=== PATIENT | male | born 1985 | race Caucasian/White ===

== ENCOUNTER 2017-03-07 15:40 | Emergency (ER) | payer SELFPAY ==
[2017-03-07 16:00] VITALS: BP 150/75
--- NOTE | 2017-03-07 16:55 | UC ---
Hand/Wrist HPI - HPI Summary HPI Summary: left hand pain after punching garage door 2 days ago - History Of Current Complaint Chief Complaint: UCUpperExtremity Stated Complaint: LEFT HAND INJURY Time Seen by Provider: 03/07/17 16:45 Hx Obtained From: Patient ?: No Mechanism Of Injury: punched a garage door Onset/Duration: Sudden Onset, Lasting Days - 2, Still Present Severity Initially: Moderate Severity Currently: Moderate Pain Intensity: 8 Pain Scale Used: 0-10 Numeric Character Of Pain: Aching, Throbbing Aggravating Factor(s): Movement Alleviating: Rest, Ice, Elevation, OTC Meds Associated Signs And Symptoms: Positive: Swelling, Bruising Related History: Dominant Hand Right - Allergies/Home Medications Allergies/Adverse Reactions: Allergies Allergy/AdvReac Type Severity Reaction Status Date / Time [facility] Allergy Unknown Unknown Verified 03/07/17 16:00 Reaction Details PMH/Surg Hx/FS Hx/Imm Hx Previously Healthy: Yes - Surgical History Surgical History: None - Family History Known Family History: Positive: None Family History: no cardiovascular issues reported in family lineage - Social History Occupation: Employed Full-time Lives: With Family Alcohol Use: Rare Substance Use Type: None Smoking Status (MU): Former Smoker Type: Smokeless Tobacco When Did the Patient Quit Smoking/Using Tobacco: 1 year - Immunization History Most Recent Tetanus Shot: unsure Hx Tetanus, Diphtheria Vaccination: Yes Vaccination Up to Date: No Review of Systems Constitutional: Negative Skin: Bruising - left hand Eyes: Negative ENT: Negative Respiratory: Negative Cardiovascular: Negative Gastrointestinal: Negative Genitourinary: Negative Motor: Negative Neurovascular: Negative Musculoskeletal: Arthralgia - left hand especially 5th mc and phalange Neurological: Negative Psychological: Negative All Other Systems Reviewed And Are Negative: Yes Physical Exam Triage Information Reviewed: Yes Appearance: Well-Appearing, Well-Nourished, Pain Distress - mild Vital Signs: Initial Vital Signs Temp 99 F 03/07/17 15:55 Pulse 88 03/07/17 15:55 Resp 14 03/07/17 15:55 BP 150/75 03/07/17 15:55 Pulse Ox 99 03/07/17 15:55 Vital Signs Reviewed: Yes Eye Exam: Normal Eyes: Positive: Conjunctiva Clear ENT Exam: Normal ENT: Positive: Normal ENT inspection, Hearing grossly normal, Pharynx normal, TMs normal. Negative: Nasal congestion, Nasal drainage, Trismus, Muffled/ hoarse voice Dental Exam: Normal Neck exam: Normal Neck: Positive: Supple, Nontender, No Lymphadenopathy Respiratory Exam: Normal Respiratory: Positive: Chest non-tender, Lungs clear, Normal breath sounds, No respiratory distress, No accessory muscle use Cardiovascular Exam: Normal Cardiovascular: Positive: RRR, No Murmur, Pulses Normal, Brisk Capillary Refill Musculoskeletal Exam: Other Musculoskeletal: Positive: Strength Intact, ROM Intact, Edema @ - left hand Neurological Exam: Normal Neurological: Positive: Alert, Muscle Tone Normal Psychological Exam: Normal Skin Exam: Other Skin: Positive: Other - abrasions atop left hand "from the broken glass Diagnostics - Radiology No standard instances Xray Interpretation: No Acute Changes Radiology Interpretation Completed By: Radiologist Re-Evaluation - Re-Evaluation First Eval Change: Improved - Clyde wrap---n/m/c/intact before and after clyde wrap Hand/Wrist Course/Dx - Course Course Of Treatment: pain control, clyde wrap, rice follow with PCP Prn - Differential Dx/Diagnosis Differential Diagnosis/HQI/PQRI: Contusion, Fracture, Sprain, Strain Provider Diagnoses: Left hand contusion, abrasions, hypertension with out dx of hbp, update tetnus Discharge - Discharge Plan Condition: Stable Disposition: HOME Prescriptions: Ibuprofen TAB* [Motrin TAB* 800 MG] 800 mg PO Q8H PRN #30 tab PRN Reason: Pain Patient Education Materials: Diphtheria/Acellular Pertussis/Tetanus Booster Vaccine (By injection), Contusion in Adults (ED), Abrasion (ED), DASH Eating Plan (ED), Hypertension (ED), RICE Therapy (ED) Referrals: Audie Castillo MD [Primary Care Provider] - 2 Weeks
[2017-03-07] MEDS ORDERED: HYDROcodone/ACETAMIN 5-325 MG* 1 TAB PO ONE (17:08)
[2017-03-07] MEDS ORDERED: Tetan/Diph/Pertus SYR(Tdap)* 0.5 ML SYR(BOOSTRIX) use SYR IM ONE (17:08)
--- NOTE | 2017-03-07 17:12 | RAD ---
INDICATION: Punched garage door. Left hand pain COMPARISON: None TECHNIQUE: AP, lateral, and oblique views were obtained. FINDINGS: There is no acute fracture or dislocation. There is soft tissue swelling over the dorsum of the hand. IMPRESSION: NO ACUTE FRACTURE.
== END 2017-03-07 17:37 | disposition home or self-care (01) ==
LOC: UCCORT 15:40
DX: S60.222A Contusion of left hand, initial encounter (principal); S60.512A Abrasion of left hand, initial encounter; I10 Essential (primary) hypertension; W22.09XA Striking against other stationary object, initial encounter; Z87.891 Personal history of nicotine dependence
CPT/HCPCS: 90471; 90715; 99202; G0463

== ENCOUNTER 2017-05-24 10:16 | Emergency (ER) | payer SELFPAY ==
--- NOTE | 2017-05-24 10:42 | UC ---
Lower Extremity/Ankle HPI - HPI Summary HPI Summary: 31 y/o male presents to the urgent care c/o LF ankle pain and swelling s/p falling 3 steps while moving some furniture yesterday. He landed onto some dresser drawers. he also has superficial abrasions on RT and LF shins. Pain at rest is 7/10, and 10/10 when walking. Mild swelling on the LF medial malleollus. Pt denies fever, SOB, chest pain, N/V/D. He has not applied ice or taking anything to alleviate symptoms. - History of Current Complaint Chief Complaint: UCLowerExtremity Stated Complaint: LEFT ANKLE INJURY Time Seen by Provider: 05/24/17 10:28 Hx Obtained From: Patient Onset/Duration: Sudden Onset, Lasting Days Severity Initially: Moderate Severity Currently: Severe Pain Intensity: 7 Pain Scale Used: 0-10 Numeric Aggravating Factor(s): Ambulation Alleviating Factor(s): Rest Able to Bear Weight: Yes - Risk Factors Gout Risk Factors: Negative DVT Risk Factors: Negative Septic Arthritis Risk Factor: Negative - Allergies/Home Medications Allergies/Adverse Reactions: Allergies Allergy/AdvReac Type Severity Reaction Status Date / Time Cefaclor [From [facility]] Allergy Unknown Unknown Verified 05/24/17 10:33 Reaction Details PMH/Surg Hx/FS Hx/Imm Hx Previously Healthy: Yes Cardiovascular History: Hypertension - Surgical History Surgical History: None - Family History Known Family History: Positive: Hypertension Family History: no cardiovascular issues reported in family lineage - Social History Occupation: Employed Full-time Lives: With Family Alcohol Use: Occasionally Substance Use Type: None Smoking Status (MU): Former Smoker Type: Smokeless Tobacco Amount Used/How Often: ONE CAN/WEEK When Did the Patient Quit Smoking/Using Tobacco: 1 year - Immunization History Most Recent Tetanus Shot: unsure Hx Tetanus, Diphtheria Vaccination: Yes Vaccination Up to Date: No Review of Systems Constitutional: Negative Skin: Bruising - LF webb with bruising, RT webb with superficial abrasion Eyes: Negative ENT: Negative Respiratory: Negative Cardiovascular: Negative Gastrointestinal: Negative Genitourinary: Negative Motor: Negative Neurovascular: Negative Musculoskeletal: Other: - LF ankle pain s/p fall Neurological: Negative Psychological: Negative All Other Systems Reviewed And Are Negative: Yes Physical Exam Triage Information Reviewed: Yes Appearance: Well-Appearing, No Pain Distress, Well-Nourished Vital Signs: Initial Vital Signs Temp 98.4 F 05/24/17 10:20 Pulse 87 05/24/17 10:20 Resp 18 05/24/17 10:20 BP 141/83 05/24/17 10:20 Vital Signs Reviewed: Yes Eye Exam: Normal Eyes: Positive: Conjunctiva Clear - PERRLA, EOMI, fundi grossly normal ENT Exam: Normal ENT: Positive: Normal ENT inspection, Hearing grossly normal, Pharynx normal, TMs normal Dental Exam: Normal Neck exam: Normal Neck: Positive: Supple, Nontender, No Lymphadenopathy Respiratory Exam: Normal Respiratory: Positive: Chest non-tender, Lungs clear, Normal breath sounds Cardiovascular Exam: Normal Cardiovascular: Positive: RRR, No Murmur, Pulses Normal, Brisk Capillary Refill Abdominal Exam: Normal Abdomen Description: Positive: Nontender, No Organomegaly, Soft. Negative: CVA Tenderness (R), CVA Tenderness (L) Bowel Sounds: Positive: Present Musculoskeletal: Positive: Strength Intact, Other: - Pt can ambulate w/ limping , medial posterior aspect of the Left ankle with mild swelling, tender to palaption, no erythema or bruisisng observed. limited ROM due to pain.Positive sensation, pulses WNL, capillary refill brisk,. Neurological Exam: Normal Psychological Exam: Normal Skin Exam: Normal Lower Extremity Course/Dx - Course Course Of Treatment: 31 y/o male presents to the urgent care c/o LF ankle pain and swelling s/p falling 3 steps while moving some furniture yesterday. He landed onto some dresser drawers. he also has superficial abrasions on RT and LF shins. Pain at rest is 7/10, and 10/10 when walking. Mild swelling on the LF medial malleollus. Pt denies fever, SOB, chest pain, N/V/D. He has not applied ice or taking anything to alleviate symptoms. LF ankle X-ray ordered: Impression:Negative, no fracture noted. Most likley a Ankle sprain. Pt ankle imobilized w/ ankle gel splin, behzad bandage, given crutches. Rx Naproxen PO to allviate symptoms. F/u with Orthopedic in 1 week if not improvement of symptoms. Pt understood and agreed, left the clinic ambulating w/ help of crutches. - Differential Dx/Diagnosis Differential Diagnosis/HQI/PQRI: Contusion, Dislocation, Fracture (Closed), Sprain, Strain, Tendonitis Provider Diagnoses: 1-Acute left ankle pain Discharge - Discharge Plan Condition: Stable Disposition: HOME Prescriptions: Naproxen TAB* [Naprosyn 250 mg TAB*] 500 mg PO Q8H PRN #30 tab PRN Reason: Pain Patient Education Materials: Ankle Sprain (ED) Referrals: Audie Castillo MD [Primary Care Provider] - 1 Week Paris Will MD [Medical Doctor] - 1 Week Additional Instructions: 1- Please take medication as directed after meals 2-Keep your ankle immobilized and apply ice, rest and elevate it at night time 3-If not improvement of symptoms please f/u with your PCP or Orthopedic in 1 week
[2017-05-24 10:44] VITALS: BP 141/83
--- NOTE | 2017-05-24 10:59 | RAD ---
Indication: Left ankle pain. 3 views of left ankle demonstrates no fracture. Ankle mortise is intact. IMPRESSION: No fracture of left ankle is noted.
== END 2017-05-24 11:47 | disposition home or self-care (01) ==
LOC: UCCORT 10:16
DX: S80.812A Abrasion, left lower leg, initial encounter (principal); S80.811A Abrasion, right lower leg, initial encounter; M25.572 Pain in left ankle and joints of left foot; W10.9XXA Fall (on) (from) unspecified stairs and steps, initial encounter
CPT/HCPCS: 99203; G0463

== ENCOUNTER 2017-05-28 16:52 | Emergency (ER) | payer SELFPAY ==
[2017-05-28 17:10] VITALS: BP 154/90
--- NOTE | 2017-05-28 18:15 | RAD ---
HISTORY: Subacute trauma, right leg pain COMPARISONS: None VIEWS: 2, Frontal and lateral views of the right foreleg FINDINGS: BONE DENSITY: Normal. BONES: There is no displaced fracture. JOINTS: There is no arthropathy. ALIGNMENT: There is no dislocation. SOFT TISSUES: Unremarkable. OTHER FINDINGS: None. IMPRESSION: NO ACUTE OSSEOUS INJURY. IF SYMPTOMS PERSIST, RECOMMEND REPEAT IMAGING.
--- NOTE | 2017-05-28 18:54 | UC ---
Lower Extremity/Ankle HPI - HPI Summary HPI Summary: RIGHT LOWER LEG AND ANKLE PAIN AFTER FALLING DOWN STAIRS 05/24/17. SEEN HERE RECEIVED XRAY. NO FRACTURE. HAS BEEN WEARING GEL CAST AND USING CRUTCHES. PAIN IS NOT GETTING BETTER. INJURY TO RIGHT LOWER LEG IS HURTING WORSE DUE TO FAVORING THAT LEG; NO XRAYS OF RIGT LEG INJURIES TAKEN AT THE TIME. HAS NOT FOLLOWED UP WITH PRIMARY CARE OR WITH ORTHOPEDIC REFERRAL. PAIN NOT CONTROLLED WITH TYLENOL AND IBUPROFEN. - History of Current Complaint Chief Complaint: UCLowerExtremity Stated Complaint: LEFT ANKLE INJURY Time Seen by Provider: 05/28/17 17:14 Hx Obtained From: Patient Onset/Duration: Sudden Onset, Lasting Days, Still Present Severity Initially: Moderate Severity Currently: Moderate Aggravating Factor(s): Standing, Ambulation Able to Bear Weight: No - Risk Factors Gout Risk Factors: Negative DVT Risk Factors: Negative Septic Arthritis Risk Factor: Negative - Allergies/Home Medications Allergies/Adverse Reactions: Allergies Allergy/AdvReac Type Severity Reaction Status Date / Time Cefaclor [From [facility]] Allergy Severe Hives Verified 05/28/17 17:00 PMH/Surg Hx/FS Hx/Imm Hx Previously Healthy: Yes - Surgical History Surgical History: None - Family History Known Family History: Positive: None, Hypertension Family History: no cardiovascular issues reported in family lineage - Social History Occupation: Employed Full-time Lives: With Family Alcohol Use: Occasionally Substance Use Type: None Smoking Status (MU): Former Smoker Type: Smokeless Tobacco Amount Used/How Often: ONE CAN/WEEK When Did the Patient Quit Smoking/Using Tobacco: 1 year - Immunization History Most Recent Influenza Vaccination: NONE 2015 Most Recent Tetanus Shot: UTD Hx Tetanus, Diphtheria Vaccination: Yes Vaccination Up to Date: No Review of Systems Constitutional: Negative Skin: Negative Eyes: Negative ENT: Negative Respiratory: Negative Cardiovascular: Negative Gastrointestinal: Negative Genitourinary: Negative Motor: Negative Neurovascular: Negative Musculoskeletal: Arthralgia, Edema, Myalgia Neurological: Negative Psychological: Negative All Other Systems Reviewed And Are Negative: Yes Physical Exam Triage Information Reviewed: Yes Appearance: Well-Appearing, No Pain Distress, Well-Nourished Vital Signs: Initial Vital Signs Temp 98.6 F 05/28/17 17:01 Pulse 62 05/28/17 17:01 Resp 16 05/28/17 17:01 BP 154/90 05/28/17 17:01 Pulse Ox 100 05/28/17 17:01 Vital Signs Reviewed: Yes Eye Exam: Normal ENT Exam: Normal ENT: Positive: Normal ENT inspection Dental Exam: Normal Neck exam: Normal Neck: Positive: Supple, Nontender, No Lymphadenopathy Respiratory Exam: Normal Respiratory: Positive: Chest non-tender, Lungs clear, Normal breath sounds, No respiratory distress, No accessory muscle use Cardiovascular Exam: Normal Cardiovascular: Positive: RRR, No Murmur, Pulses Normal Abdominal Exam: Normal Musculoskeletal: Positive: ROM Intact, Strength Limited @ - LEFT ANKLE, Edema @ - LEFT FOOT, Other: - ABRASIONS TO RIGHT ANTERIOR LEG Neurological Exam: Normal Psychological Exam: Normal Skin: Positive: Other - HEALING ABRASIONS RIGHT ANTERIOR LEG Lower Extremity Course/Dx - Differential Dx/Diagnosis Differential Diagnosis/HQI/PQRI: Contusion, Fracture (Closed), Sprain, Strain Provider Diagnoses: RIGHT ANTERIOR LEG CONTUSION/ABRASION; LEFT ANKLE/FOOT SPRAIN Discharge - Discharge Plan Condition: Stable Disposition: HOME Prescriptions: Hydrocodone-Acetaminophen [[place] 5-325 mg] 1 tab PO TID PRN #12 tab MDD THREE TABS PRN Reason: Pain Patient Education Materials: Ankle Sprain (ED), Foot Sprain (ED), Abrasion (ED) , Arthralgia (ED) Forms: *Work Release Referrals: Audie Castillo MD [Primary Care Provider] - Epifanio Brown MD [Medical Doctor] - Additional Instructions: PHYSICAL THERAPY REFERRAL: You have been prescribed physical therapy. Treatments may include stretching, exercise, application of heat or cold, and other modalities. After an injury, PT can reduce swelling and pain. In recovery, PT is used to restore mobility and strength. Your specific treatment goals are: ___x__ Reduction of Swelling (EGS, US, ice as needed) ___x__ Pain Reduction (EGS, US, ice as needed) TENS Pack Fitting and Instruction Wound Hydrotherapy ___x__ Preservation of Mobility ___x__ Judaism of Mobility ___x__ Strength Judaism ___x__ Work or Sports Hardening This instruction sheet also serves as your PHYSICAL THERAPY REFERRAL! Please take it with you to the therapist, so he/she will be aware of your diagnosis and treatment plan. You may see the physical therapist of your choice for these treatments, but may wish to check with your insurance to be sure the provider you select is covered. It's important to see the doctor to whom you have been referred for follow up.
[2017-05-28] MEDS ORDERED: HYDROcodone/ACETAMIN 5-325 MG* 1 TAB PO ONE (18:57)
== END 2017-05-28 19:05 | disposition home or self-care (01) ==
LOC: UCCORT 16:52
DX: S80.11XD Contusion of right lower leg, subsequent encounter (principal); S80.811D Abrasion, right lower leg, subsequent encounter; S93.402D Sprain of unspecified ligament of left ankle, subsequent encounter; W10.9XXD Fall (on) (from) unspecified stairs and steps, subsequent encounter; Z88.1 Allergy status to other antibiotic agents; Z87.891 Personal history of nicotine dependence
CPT/HCPCS: 99213; G0463

== ENCOUNTER 2018-11-10 21:06 | Emergency (ER) | payer OTHER ==
[2018-11-10 21:20] VITALS: BP 140/71
[2018-11-10 21:38] LABS: Influenza A Molecular NEGATIVE (Negative); Influenza B Molecular NEGATIVE (Negative)
--- NOTE | 2018-11-10 21:52 | UC ---
Respiratory Complaint HPI - HPI Summary HPI Summary: Per inside sales director "c/o fever (max 103F), cough, and body aches beginning this afternoon. " -here w/ female friend. -sudden onset. no wheezing. no asthma. + smoker. no ST or ear ache, no sinus pian -very cold. -no relief w/ angie babcock - History of Current Complaint Chief Complaint: UCGeneralIllness Stated Complaint: FEVER Time Seen by Provider: 11/10/18 21:39 Pain Intensity: 5 - Allergies/Home Medications Allergies/Adverse Reactions: Allergies Allergy/AdvReac Type Severity Reaction Status Date / Time cefaclor Allergy Hives Verified 11/10/18 21:16 Home Medications: Home Medications Dm/PE/Acetaminophen/Chlorphenr [Angie-[place] Plus Cold &] 1 cap PO ONCE [History Confirmed 11/10/18] PMH/Surg Hx/FS Hx/Imm Hx Previously Healthy: Yes - Surgical History Surgical History: None - Family History Known Family History: Positive: Hypertension Family History: no cardiovascular issues reported in family lineage - Social History Alcohol Use: None Substance Use Type: None Smoking Status (MU): Former Smoker Type: Cigarettes, Smokeless Tobacco Amount Used/How Often: ONE CAN/WEEK When Did the Patient Quit Smoking/Using Tobacco: 1 year - Immunization History Most Recent Influenza Vaccination: NONE 2015 Most Recent Tetanus Shot: UTD Hx Tetanus, Diphtheria Vaccination: Yes Vaccination Up to Date: No Review of Systems All Other Systems Reviewed And Are Negative: Yes Constitutional: Positive: Fever, Chills, Fatigue Skin: Positive: Negative Eyes: Positive: Negative ENT: Positive: Negative Respiratory: Positive: Cough - mild Cardiovascular: Positive: Negative Gastrointestinal: Positive: Negative Genitourinary: Positive: Negative Motor: Positive: Negative Neurovascular: Positive: Negative Musculoskeletal: Positive: Arthralgia, Myalgia Neurological: Positive: Negative Psychological: Positive: Negative Is Patient Immunocompromised?: No Physical Exam Triage Information Reviewed: Yes Appearance: Ill-Appearing - wearing multiple layers. moderately ill. Vital Signs: Initial Vital Signs Temp 100.7 F 11/10/18 21:15 Pulse 94 11/10/18 21:15 Resp 18 11/10/18 21:15 BP 140/71 11/10/18 21:15 Pulse Ox 99 11/10/18 21:15 Vital Signs Reviewed: Yes Eye Exam: Normal ENT: Positive: Hearing grossly normal, Pharyngeal erythema - + PND, Nasal congestion, TMs normal. Negative: Tonsillar swelling, Tonsillar exudate, Sinus tenderness Dental Exam: Normal Neck exam: Normal Neck: Positive: Supple, Nontender, No Lymphadenopathy Respiratory Exam: Normal Respiratory: Positive: Lungs clear, Normal breath sounds, No respiratory distress, No accessory muscle use. Negative: Crackles, Rhonchi, Stridor, Wheezing Cardiovascular Exam: Normal Cardiovascular: Positive: RRR, No Murmur Abdominal Exam: Normal Abdomen Description: Positive: Nontender, Soft Musculoskeletal Exam: Normal Neurological Exam: Normal Psychological Exam: Normal Skin Exam: Normal UC Diagnostic Evaluation - Laboratory O2 Sat by Pulse Oximetry: 99 Respiratory Course/Dx - Course Course Of Treatment: rapid flu negative. -CXR today to r/o pneumonia despite nml exam due to sudden onsnet of fever 103 and systemic symptoms of body aches and chills. Understands that [facility] Xray has not been read by radiologist but will be read by AM. I will f/u on official read in AM as well. - Differential Dx/Diagnosis Differential Diagnosis/HQI/PQRI: Bronchitis, Influenza, Lower Resp Infection Provider Diagnosis: Viral syndrome Discharge - Sign-Out/Discharge Documenting (check all that apply): Patient Departure All imaging exams completed and their final reports reviewed: No - Discharge Plan Condition: Stable Disposition: HOME Patient Education Materials: Viral Syndrome (ED) Referrals: Audie Castillo MD [Primary Care Provider] - Additional Instructions: I did not see any pneumonia on the chest xray, however this is not officially read by the radiologist yet. You will get a call tomorrow with the results either ways. Fluids, rest, ibuprofen 800mgs every 8 hrs alternating with tylenol 1000mgs every 6 hrs until your symptoms resolve. You should go the ER if your symptoms worsen. Call your PCP on Tuesday for follow up. - Billing Disposition and Condition Condition: STABLE Disposition: Home
--- NOTE | 2018-11-11 13:23 | UC ---
- Progress Note Progress Note: CXR official report: "IMPRESSION: CHEST X-RAY FINDINGS COULD BE COMPATIBLE WITH VIRAL PNEUMONIA IN THE CORRECT CLINICAL SETTING. 2. INCIDENTALLY NOTED IS LIKELY FAT AT THE DEPENDENT ANTERIOR LEFT PLEURAL FISSURE." -Staff to contact pt w/ above findings. reassure that no abx is necessary for viral pneumonia. Incidental fat pad likely has no clinical significance but should notify his PCP. Make sure to follow up with PCP for illness as directed. Course/Dx - Diagnoses Provider Diagnoses: Viral syndrome Discharge - Sign-Out/Discharge Documenting (check all that apply): Post-Discharge Follow Up All imaging exams completed and their final reports reviewed: Yes - Discharge Plan Condition: Stable Disposition: HOME Patient Education Materials: Viral Syndrome (ED) Referrals: Audie Castillo MD [Primary Care Provider] - Additional Instructions: I did not see any pneumonia on the chest xray, however this is not officially read by the radiologist yet. You will get a call tomorrow with the results either ways. Fluids, rest, ibuprofen 800mgs every 8 hrs alternating with tylenol 1000mgs every 6 hrs until your symptoms resolve. You should go the ER if your symptoms worsen. Call your PCP on Tuesday for follow up. - Billing Disposition and Condition Condition: STABLE Disposition: Home
== END 2018-11-10 22:13 | disposition home or self-care (01) ==
LOC: UCCORT 21:06
DX: B34.9 Viral infection, unspecified (principal); R05 Cough; R52 Pain, unspecified; J39.2 Other diseases of pharynx; R09.81 Nasal congestion; R09.82 Postnasal drip; Z87.891 Personal history of nicotine dependence; Z88.1 Allergy status to other antibiotic agents
CPT/HCPCS: 71046; 99211; G0463

== ENCOUNTER 2019-01-25 20:40 | Emergency (ER) | payer OTHER ==
[2019-01-25 20:56] VITALS: BP 141/77
--- NOTE | 2019-01-25 21:29 | UC ---
Laceration HPI - HPI Summary HPI Summary: 33-year-old male who sustained an approximately 0.25 cm laceration to his right palm today when a window broke. Last tetanus was one year ago. The incident happened at 11 AM today and he washed the wound at home. He did not come in until this evening because his significant other made him come in. - History Of Current Complaint Chief Complaint: UCLaceration Stated Complaint: RT HAND LAC Time Seen by Provider: 01/25/19 20:51 Hx Obtained From: Patient Laceration Location: Hand Mechanism Of Injury: Sharp Trauma - Broken glass Severity: Mild Pain Intensity: 2 Aggravating Factors: Movement, Other: - The shower this evening and the laceration started bleeding again. - Allergies/Home Medications Allergies/Adverse Reactions: Allergies Allergy/AdvReac Type Severity Reaction Status Date / Time cefaclor Allergy Hives Verified 01/25/19 20:52 Home Medications: Home Medications Guaifen/Phenyleph/Acetaminophn [Mucinex Sinus-Max Severe Liq] 1 liq PO SEE INSTRUCTIONS PRN 01/25/19 [History Confirmed 01/25/19] PMH/Surg Hx/FS Hx/Imm Hx Previously Healthy: Yes - Surgical History Surgical History: None - Family History Known Family History: Positive: None, Hypertension Family History: no cardiovascular issues reported in family lineage - Social History Lives: With Family Alcohol Use: None Substance Use Type: None Smoking Status (MU): Light Every Day Tobacco Smoker Type: Cigarettes Amount Used/How Often: ~1/5 PPD Length of Time of Smoking/Using Tobacco: Since Age 22 (Chew for 10 years; Cigarettes Since Age 32) Have You Smoked in the Last Year: Yes When Did the Patient Quit Smoking/Using Tobacco: 1 year Household Exposure Type: Cigars - Immunization History Most Recent Influenza Vaccination: NONE 2015 Most Recent Tetanus Shot: 03/07/17 Hx Tetanus, Diphtheria Vaccination: Yes Vaccination Up to Date: No Review of Systems All Other Systems Reviewed And Are Negative: Yes Skin: Positive: Other - Laceration right hand. Is Patient Immunocompromised?: No Physical Exam Triage Information Reviewed: Yes Appearance: Well-Appearing, No Pain Distress, Well-Nourished Vital Signs: Initial Vital Signs Temp 98.7 F 01/25/19 20:51 Pulse 66 01/25/19 20:51 Resp 20 01/25/19 20:51 BP 141/77 01/25/19 20:51 Pulse Ox 100 01/25/19 20:51 Musculoskeletal Exam: Normal Musculoskeletal: Positive: Strength Intact, ROM Intact - The peripheral pulses, neuro sensation, capillary refill. Approximately 0.25 cm laceration at the base of the right palm. There is a small bleeder present. He has good finger strength with flexion and extension against resistance. Neurological Exam: Normal Neurological: Positive: Alert, Muscle Tone Normal Psychological Exam: Normal Skin Exam: Other - See above notes. Laceration Repair - Laceration Repair 1 Description: Linear Laceration Size After Repair: Length (cm) - 0.25 cm Modified For Repair: No Cleansing Completed Via Routine Prep: Yes Irrigation With Pressure Irrigation Device: Yes Closure Material: Sutures Closure Method: Single Layer Suture Of: Skin Suture Type: Prolene - 4-0 Prolene, 1 suture placed without anesthesia patient tolerated procedure well. Laceration Course/Dx - Course/Dx Course Of Treatment: Patient opted not to have local anesthesia and 1 suture was placed. The patient tolerated procedure well. The bleeding was then stopped with one suture placed. Had a tetanus shot 2 years ago. - Diagnosis Provider Diagnosis: Laceration of hand Discharge - Sign-Out/Discharge Documenting (check all that apply): Patient Departure All imaging exams completed and their final reports reviewed: No Studies - Discharge Plan Condition: Good Disposition: HOME Patient Education Materials: Care For Your Stitches (DC) Forms: *Work Release Referrals: No Primary Care Phys,NOPCP [Primary Care Provider] - Additional Instructions: Follow-up with your primary care provider in one week for suture removal. Watch for signs of infection such as hot, red, tender, swelling, pus drainage or red streaks up your arm and follow-up sooner if you develop infection. Change dressing daily.. - Billing Disposition and Condition Condition: GOOD Disposition: Home
== END 2019-01-25 21:37 | disposition home or self-care (01) ==
LOC: UCCORT 20:40
DX: S61.411A Laceration without foreign body of right hand, initial encounter (principal); F17.210 Nicotine dependence, cigarettes, uncomplicated; X58.XXXA Exposure to other specified factors, initial encounter; Y92.9 Unspecified place or not applicable
CPT/HCPCS: 12001; 99211; G0463